=== PATIENT | male | born 1995 | race Caucasian/White ===

== ENCOUNTER 2016-08-14 04:35 | Emergency (ER) | payer OTHER ==
[2016-08-14 04:46] VITALS: RESP 18; TEMP 98.6
[2016-08-14] MEDS ORDERED: SKIN ADHESIVE (DERMABOND) 1 EACH TP ONE (05:12)
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
[2016-08-14 05:56] VITALS: BP 127/73; PULSE 99; O2SAT 97
== END 2016-08-14 06:37 | disposition home or self-care (01) ==
DX: S01.412A Laceration without foreign body of left cheek and temporomandibular area, initial encounter (principal); S62.665A Nondisplaced fracture of distal phalanx of left ring finger, initial encounter for closed fracture; Y08.89XA Assault by other specified means, initial encounter